=== PATIENT | male | born 1995 | race African-American/Black ===

== ENCOUNTER 2020-12-25 08:40 | Emergency (ER) | payer SELFPAY ==
[~2020-12-25] VITALS: Ht 180.3 cm; Wt 110.0 kg
[2020-12-25] MEDS ORDERED: KETOROLAC TROMETHAMINE 60 MG/2 ML VIAL IM ONE (09:15)
[2020-12-25] MEDS ORDERED: BROMFED DM COU118 ML PO (10:59)
[2020-12-25] MEDS ORDERED: PROAIR HFA INH8.5 GM PO (10:59)
[2020-12-25] MEDS ORDERED: ALBUTEROL2.5 MG/3 M NEB (10:59)
[2020-12-25] MEDS ORDERED: PREDNISONE20 MG PO (10:59)
[2020-12-25] MEDS ORDERED: AZITHROMYCIN500 MG PO (10:59)
[2020-12-25] MEDS ORDERED: CYCLOBENZAPRINE5 MG PO (11:02)
[2020-12-25 11:03] VITALS: BP 129/90
== END 2020-12-25 11:12 | disposition home or self-care (01) ==
LOC: FSED 08:45
DX: R09.1 Pleurisy (principal); R05 Cough; J20.9 Acute bronchitis, unspecified; S29.011A Strain of muscle and tendon of front wall of thorax, initial encounter; F17.210 Nicotine dependence, cigarettes, uncomplicated
CPT/HCPCS: 71046; 99283; J1885

== ENCOUNTER 2022-10-29 14:48 | Emergency (ER) | payer BC, OTHER ==
[~2022-10-29] VITALS: Ht 180.3 cm; Wt 99.8 kg
[~2022-10-29 14:48] MED LIST: ALBUTEROL2.5 MG/3 M NEB; AZITHROMYCIN500 MG PO; BROMFED DM COU118 ML PO; CYCLOBENZAPRINE5 MG PO; PREDNISONE20 MG PO; PROAIR HFA INH8.5 GM PO
[2022-10-29] MEDS ORDERED: PREDNISONE50 MG PO (15:28)
[2022-10-29] MEDS ORDERED: CYCLOBENZAPRINE10 MG PO (15:29)
[2022-10-29] MEDS ORDERED: PREDNISONE 20 MG TAB PO ONE (15:30)
[2022-10-29] MEDS ORDERED: DICLOFENAC POTA50 MG PO (15:31)
[2022-10-29] MEDS ORDERED: PREDNISONE 20 MG TAB ONE (15:37)
== END 2022-10-29 16:03 | disposition home or self-care (01) ==
LOC: FSED 14:52
DX: S39.012A Strain of muscle, fascia and tendon of lower back, initial encounter (principal); Y93.E6 Activity, residential relocation; Y92.89 Other specified places as the place of occurrence of the external cause; F17.210 Nicotine dependence, cigarettes, uncomplicated
CPT/HCPCS: 99282; J7512

== ENCOUNTER 2024-10-07 20:09 | Emergency (ER) | payer BC ==
[~2024-10-07] VITALS: Ht 188 cm; Wt 99.8 kg
[~2024-10-07 20:09] MED LIST changes: +CYCLOBENZAPRINE10 MG PO; +DICLOFENAC POTA50 MG PO; +KETOROLAC TROME10 MG PO; +PREDNISONE50 MG PO; +TYLENOL325 MG PO
[2024-10-07 20:11] VITALS: PULSE 87; RESP 20; TEMP 97.8
[2024-10-07] MEDS ORDERED: GUAIFENESIN 200 MG/10 ML UDC PO ONE (20:45)
[2024-10-07] MEDS ORDERED: AUGMENTIN 500-1 EACH PO (20:57)
[2024-10-07] MEDS ORDERED: Augmentin PO (20:57)
[2024-10-07] MEDS ORDERED: IBUPROFEN800 MG PO (20:57)
[2024-10-07] MEDS: KETOROLAC TROMETHAMINE 60 MG/2 ML VIAL IM ONE (21:04)
[2024-10-07] MEDS: DEXAMETHASONE SOD PHOS INJ 4 MG/ML SDV IM ONE (21:04)
[2024-10-07 21:05] VITALS: BP 145/87; PULSE 87; RESP 20; TEMP 97.8; O2SAT 98
[2024-10-07] MEDS: ACETAMINOPHEN 325 MG TAB PO ONE (21:05)
== END 2024-10-07 21:09 | disposition home or self-care (01) ==
LOC: FSED 20:12
DX: R05.9 Cough, unspecified (principal); J02.8 Acute pharyngitis due to other specified organisms; Z11.52 Encounter for screening for COVID-19; F17.210 Nicotine dependence, cigarettes, uncomplicated
CPT/HCPCS: 0223U; 83518 ×2; 87400; 96372; 99283; J1100; J1885

== ENCOUNTER 2025-01-25 21:04 | Emergency (ER) | payer BC ==
[~2025-01-25] VITALS: Ht 182.9 cm; Wt 106.1 kg
[~2025-01-25 21:04] MED LIST changes: +AUGMENTIN 500-1 EACH PO; +Augmentin PO; +IBUPROFEN800 MG PO
[2025-01-25 21:07] VITALS: PULSE 76; RESP 19; TEMP 98.1
[2025-01-25] MEDS ORDERED: PREDNISONE50 MG PO (21:47)
[2025-01-25] MEDS ORDERED: NAPROSYN500 MG PO (21:48)
[2025-01-25] MEDS ORDERED: METHOCARBAMOL750 MG PO (21:49)
[2025-01-25] MEDS: PREDNISONE 20 MG TAB PO ONE (21:52)
[2025-01-25] MEDS: KETOROLAC TROMETHAMINE 60 MG/2 ML VIAL IM ONE (21:52)
[2025-01-25 22:07] VITALS: BP 142/95; O2SAT 98
== END 2025-01-25 22:09 | disposition home or self-care (01) ==
LOC: FSED 21:13
DX: M54.16 Radiculopathy, lumbar region (principal); M62.830 Muscle spasm of back; F17.210 Nicotine dependence, cigarettes, uncomplicated
CPT/HCPCS: 99282; J1885; J7512